=== PATIENT | female | born 1940 | race Caucasian/White ===

== ENCOUNTER 2021-04-02 05:04 | Outpatient (CLI) | payer OTHER, SELFPAY ==
[2021-04-02] MEDS: Albuterol HFA 18 GM 200 PUFF INH IH (14:29)
[2021-04-02] MEDS: Inhaler, Assist Device 1 EACH MC (14:30)
--- NOTE | 2021-04-02 15:39 | W.PFT ---
Date of service: 04/02/21 Time of Service: 13:00 Pulmonary Function Test Result Indications: Chronic Respiratory Failure 6 Minute Walk Test Distance: 600 feet SpO2 rest: 94% on 2L/min SpO2 exertion: At 2 minutes, desaturated to 88%, O2 increased to 3L/min. At 4.5 minutes desaturated to 87%, O2 increased to 4L/min with resolution of desaturations. Recommendations: 2 L/min supplemental oxygen at rest. 4 L/min supplemental oxygen with exertion.
--- NOTE | 2021-04-02 15:45 | W.PFT ---
Date of service: 04/02/21 Time of Service: 13:32 Pulmonary Function Test Result Requesting Provider Ama Indications: Worsening VELÁZQUEZ Interpretation Spirometry: There is moderate airflow obstruction. There is not a significant bronchodilator effect. Lung Volumes: Lung volumes are normal Diffusion Capacity: The diffusion is reduced Airway Pressure: Airways resistance is elevated Impression Moderate airflow obstruction. Note: When compared to 04/16/2020 the FVC and the FEV1 have both increased. When compared to 01/25/2020 there is no longer hyperinflation or air trapping present. Clinical Correlation therefore is recommended.
[2021-04-04 20:42] LABS: Cat Epithelium IgE <0.35 kU/L; Cedar, IgE <0.35 kU/L; Cockroach IgE <0.35 kU/L; Cow IgE <0.35 kU/L; Dog Dander IgE <0.35 kU/L; Douglas Fir, IgE <0.35 kU/L; Elm IgE <0.35 kU/L; Giant Ragweed IgE <0.35 kU/L; Horse Dander, IgE <0.35 kU/L; House Dust Panel <0.35 kU/L; Oak IgE <0.35 kU/L; Orchard Grass, IgE <0.35 kU/L; Short Ragweed IgE <0.35 kU/L; Silver Birch IgE <0.35 kU/L; Timothy Grass IgE <0.35 kU/L; Walnut Tree IgE <0.35 kU/L; White Pine, IgE <0.35 kU/L
[2021-04-10 17:38] LABS: CLASS 0; Cedar Red IgE <0.10 kU/L (<0.35)
== END 2021-04-02 05:05 | disposition home or self-care (01) ==
LOC: RT 05:05
PROVIDERS: PCP Family Medicine; Visit Provider Student in an Organized Health Care Education/Training Program
DX: J44.9 Chronic obstructive pulmonary disease, unspecified (principal); J45.909 Unspecified asthma, uncomplicated
CPT/HCPCS: 86003; 94060; 94618; 94726; 94729

== ENCOUNTER 2021-06-19 14:46 | Inpatient (IN) | payer MEDICARE, SELFPAY ==
[2021-06-19] VITALS (7 sets, daily range): BP systolic 92–120; BP diastolic 59–64; PULSE 67–76; RESP 4–22; TEMP 35.5–36.6; O2SAT 96–100
[2021-06-19 15:26] LABS: Source Nasal/Nares
[2021-06-19 16:13] LABS: COVID-19 PCR Negative (Negative); Influenza A PCR Negative (Negative); Influenza B PCR Negative (Negative); RSV PCR Negative (Negative)
[2021-06-19 16:29] LABS: Abs Immature Grans 0.04 10^3/uL (0.0-0.06); Absolute Basophil Count 0.03 10^3/uL (0.0-0.2); Absolute Eosinophil Count 0.07 10^3/uL (0.0-0.7); Absolute Lymphocyte Count 1.52 10^3/uL (1.2-3.4); Absolute Monocyte Count 0.79 10^3/uL (0.1-0.8); Basophils % 0.3; Eosinophils % 0.6; HCT 38.4 % (36.0-46.0); HGB 11.5 g/dL (11.2-15.7); Immature Grans % 0.4; Lymphocytes % 13.5; MCH 25.3 pg (27.0-33.0); MCHC 29.9 % (32.0-36.0); MCV 84.6 fL (80-95); MPV 9.9 fL (8.0-11.0); Neutrophils % 78.2; Nucleated RBC 0 %; Platelet Count 262 10^3/uL (130-400); RBC 4.54 10^6/uL (3.93-5.22); RDW 17.8 % (11.7-14.6); RDW-SD 54.8 fL; WBC 11.28 10^3/uL (4.4-10.8)
[2021-06-19 16:33] LABS: Absolute Neutrophil Count 8.82 10^3/uL (1.2-6.7)
[2021-06-19 16:44] LABS: ALT 17 U/L (14-59); AST 12 U/L (15-37); Albumin 3.1 g/dL (3.4-5.0); Alkaline Phosphatase 52 U/L (46-116); Anion Gap 4.7 mmol/L (3-11); BUN 23 mg/dL (7-18); Bilirubin, Total 0.4 mg/dL (0.2-1.0); CO2 31.3 mmol/L (21.0-32.0); CREATININE 1.1 mg/dL (0.55-1.02); Calcium 8.5 mg/dL (8.5-10.1); Chloride 108 mmol/L (98-107); Estimated GFR 47.79 (mL/min/1.73m2); Glucose 121 mg/dL (74-106); NT-proBNP 4369 pg/mL (<300); Potassium 4.5 mmol/L (3.5-5.1); Sodium 144 mmol/L (136-145); TSH (W/Ref FT4) 0.61 uIU/mL (0.36-3.74); Total Protein 6.1 g/dL (6.4-8.2)
[2021-06-19 16:50] LABS: Troponin I 0.07 ng/mL (<0.06)
[2021-06-19] MEDS: Furosemide 40 MG/4 ML VIAL IVP (17:09)
[2021-06-19] MEDS: Enoxaparin 40 MG/0.4 ML SYR SC (17:09)
--- NOTE | 2021-06-19 17:55 | DI.RAD_ITS ---
Exam(s) XR CHEST 2V PA LATERAL EXAM: XR CHEST 2V PA LATERAL CLINICAL HISTORY: Shortness of air, CHF, COPD TECHNIQUE: 2D digital imaging was performed. COMPARISON: CR XR CHEST 2VW (D) from 02/21/2021 FINDINGS: HEART: AVR. Enlarged, stable. Mildly tortuous aorta. PULMONARY VASCULATURE: Prominent. LUNGS: Interstitial changes, likely chronic. PLEURAL SPACE: No pleural effusion or pneumothorax. BONE:Unremarkable for age. IMPRESSION: Increased interstitial changes, likely chronic. mild pulmonary edema possible. DATA REPOSITORY: RADIATION DOSE DELIVERED:
--- NOTE | 2021-06-19 18:33 | DI.VRAD_ITS ---
PROCEDURE INFORMATION: Exam: XR Chest Exam date and time: 06/19/2021 5:52 PM Age: 80 years old Clinical indication: Shortness of breath TECHNIQUE: Imaging protocol: XR of the chest. Views: 2 views. COMPARISON: CR XR CHEST 2VW (D) 02/21/2021 2:56 PM FINDINGS: Lungs: Atelectasis in the lower lungs. Pleural spaces: Unremarkable. No pleural effusion. No pneumothorax. Heart/Mediastinum: See Vasculature finding. Vasculature: Aortic calcifications. AVR. Bones/joints: Degenerative arthritis shoulders and spine. IMPRESSION: No acute findings Dictated and Authenticated by: Bailey Perry MD. Ordering:MIGUEL ANGEL Velasquez MD
[2021-06-19] MEDS: Metoprolol 25 MG TAB PO (20:00)
--- NOTE | 2021-06-19 20:24 | W.PM.HP.N ---
Date of service: 06/19/21 Time of Service: 16:24 Assessment and Plan Assessment and plan (1) Pulmonary hypertension: Status: Acute Assessment and plan: Echocardiogram on 06/12 showed stable pulmonary hypertension. (2) Asthma-COPD overlap syndrome: Status: Acute Assessment and plan: She is on Breztri, Duonebs BID, chronic azithromycin 2x/week, prednisone 5mg daily, flutter valve. Will continue these. Pulmonary medicine consulted and was seen in their office today. CXR w/o acute findings. (3) Type 2 diabetes mellitus: Status: Acute Assessment and plan: No A1c in our records. Cont basal/bolus insulin and monitor Consistent carb diet. (4) Hyperlipidemia: Status: Acute Assessment and plan: Cont ezetimibe and simvastatin (on the combo pill at home). (5) Coronary arteriosclerosis: Status: Acute Assessment and plan: No c/o Chest pain. Cont ASA, BB, isosorbide. Troponin 0.07; trend. (6) S/P TAVR (transcatheter aortic valve replacement): (7) Heart failure with preserved ejection fraction: Status: Acute Assessment and plan: Echocardiogram on 06/12/21. EF of 65-70% Normal RV size. Moderate MR. + diastolic dysfunction. She endorses closely following a low Na diet. No excessive fluid intake. Lasix 40mg now and repeat in AM. Make decision then on further diuretic dosing. History of Present Illness History of Present Illness Chief Complaint: Dyspnea Narrative: This is an 80 yo female with a PMH of asthma,COPD overlap syndrome, chronic hypoxic resp failure,OA, fibromyalgia, former smoker, AAA, cerebral arterial aneurysm w/o rupture. She presented to Dr Serrato's office / Pulmonary Medicine, for worsening dyspnea over appx 3 days. Increased sputum production. She has noted pedal edema. She has lasix to take prn for wt gain / fluid retention but has been hesitant to take it because she then has to urinate in the night. No CP/palpitations, Fever/chills, dysuria, nausea/vomiting/diarrhea. She appeared to have volume overload and not having a COPD exacerbation. She was admitted for further evaluation and treatment. Review of Systems All systems reviewed & are unremarkable except as noted in HPI and below [facility] Active Problem List Pulmonary hypertension (Acute) Asthma-COPD overlap syndrome (Acute) Thyroid nodule (Acute) Type 2 diabetes mellitus (Acute) Hyperlipidemia (Acute) Coronary arteriosclerosis (Acute) Cerebral arterial aneurysm (Acute) Abdominal aortic aneurysm (Acute) COPD (chronic obstructive pulmonary disease) (Chronic) GERD (gastroesophageal reflux disease) (Chronic) HLP (hyperkeratosis lenticularis perstans) (Acute) Arthritis (Acute) Fibromyalgia (Acute) Osteoporosis (Chronic) Dysphagia (Acute) Renal insufficiency (Chronic) Respiratory failure with hypoxia (Acute) Former smoker (Chronic) Pleural effusion (Acute) Recurrent respiratory infection (Acute) COPD, frequent exacerbations (Acute) Malaise and fatigue (Acute) Persistent insomnia (Acute) Medical History Aortic valve stenosis, nonrheumatic Chronic pancreatitis Fracture of humerus right Surgical History H/O abdominal aortic aneurysm repair H/O cardiac catheterization History of colectomy S/P appendectomy S/P TAVR (transcatheter aortic valve replacement) Stented coronary artery 2 cardiac stents. Family History Brother , at age 60 COPD (chronic obstructive pulmonary disease) Cancer family history of lung cancer. Hyperlipidemia Father COPD (chronic obstructive pulmonary disease) at age 59 Hyperlipidemia Heart disease Diabetes Myocardial infarction Sister Cancer family history of ovarian cancer. Mother Hyperlipidemia Alzheimer disease Social History Smoking/Tobacco Use Status: Former Tobacco Use tobacco type: cigarettes Quit Date: 02/25/20 Pack-years: 195 Tobacco: How many years used: 65 Second Hand Exposure: No Smoking risk assessment performed?: Yes Alcohol Intake: current Alcohol Intake frequency: a few times a week Alcohol type: hard liquor Drug use: Never Substance use type: does not use Current gender identity: female Do you feel safe at home: Yes Do you feel safe in your relationship?: Yes Meds Allergies and Home Medications Allergies Allergy/AdvReac Type Severity Reaction Status Date / Time vancomycin Allergy Unknown Other (See Verified 06/19/21 13:18 Comment) zolpidem [From Ambien] AdvReac Severe hallucinati Verified 06/19/21 13:18 ons Home Medications Medication Instructions Recorded Confirmed Type aspirin 81 mg tablet,delayed 81 mg PO DAILY 01/31/21 06/19/21 History release blood sugar diagnostic #10 ea 01/31/21 06/19/21 History blood-glucose meter #1 ea 01/31/21 06/19/21 History ezetimibe 10 mg-simvastatin 20 mg 1 tab PO QHS 01/31/21 06/19/21 History tablet gabapentin 600 mg tablet 600 mg PO QHS 01/31/21 06/19/21 History insulin glargine 100 unit/mL (3 40 unit SUBCUT DAILY ml 01/31/21 06/19/21 History mL) subcutaneous pen insulin lispro 100 unit/mL See Rx Instructions SUBCUT .COMPLEX 01/31/21 05/13/21 History subcutaneous pen ipratropium 0.5 mg-albuterol 3 mg 3 ml INHALATION Q6H PRN 01/31/21 06/19/21 History (2.5 mg base)/3 mL nebulization soln isosorbide mononitrate 30 mg 30 mg PO DAILY 01/31/21 06/19/21 History tablet,extended release 24 hr pantoprazole 40 mg tablet,delayed 40 mg PO DAILY 01/31/21 06/19/21 History release spironolactone 25 mg tablet 12.5 mg PO DAILY tab 02/06/21 06/19/21 History azithromycin 500 mg tablet See Rx Instructions PO .COMPLEX 02/20/21 06/19/21 Rx #36 tab NS albuterol sulfate 90 mcg/actuation 2 puff INHALATION .COMPLEX PRN #1 02/26/21 05/13/21 Rx aerosol inhaler inh budesonide 160 mcg-glycopyr 9 2 inh INHALATION BID #10.7 g 03/04/21 06/19/21 Rx mcg-formot 4.8 mcg/actuation HFA inhaler Oxygen #1 ea 04/05/21 06/19/21 Rx codeine 10 mg-guaifenesin 100 mg/5 10 ml PO BID PRN ml 04/25/21 06/19/21 History mL oral liquid prednisone 5 mg tablet 5 mg PO DAILY #90 tab 05/13/21 06/19/21 Rx metoprolol tartrate 25 mg tablet 75 mg PO BID 06/19/21 06/19/21 History Exam Const General: cooperative and no acute distress Nutritional Appearance: obese Orientation: alert and oriented x3 HENMT Head: normal to inspection and atraumatic Mouth: moist mucous membranes Eyes General: appearance normal, both eyes and all related structures Sclera: sclerae normal Neck Neck: full ROM and no JVD Resp Effort & Inspection: normal respiratory effort Auscultation: rales (lower lung vyas), no rhonchi and no wheezes Cardio Rate: regular rate Rhythm: regular rhythm Heart Sounds: S1 normal and S2 normal GI Palpation: soft and nontender Auscultation: normal bowel sounds Skin General skin exam: no rashes or lesions noted Neuro General: no focal motor deficits Cranial Nerves: facial strength normal Cognition: normal cognition Speech: speech normal Extrem General: no calf tenderness and edema Laterality: bilateral Psych Appearance: grossly normal Affect: normal affect Results Labs Result diagrams: 06/20/21 06:10 06/19/21 16:15 Labs: Laboratory Results - last 24 hr 06/19/21 06/19/21 06/19/21 15:10 16:15 16:15 WBC 11.28 H RBC 4.54 Hgb 11.5 Hct 38.4 MCV 84.6 MCH 25.3 L MCHC 29.9 L RDW 17.8 H Plt Count 262 MPV 9.9 Immature Gran % 0.4 Neutrophils % 78.2 Lymphocytes % 13.5 Monocytes % 7.0 Eosinophils % 0.6 Basophils % 0.3 Nucleated RBC % 0 Absolute Neutrophils 8.82 H Absolute Lymphocytes 1.52 Absolute Monocytes 0.79 Absolute Eosinophils 0.07 Absolute Basophils 0.03 Sodium 144 Potassium 4.5 Chloride 108 H Carbon Dioxide 31.3 Anion Gap 4.7 BUN 23 H Creatinine 1.1 H Estimated GFR/1.73 m2 47.79 Glucose 121 H Calcium 8.5 Magnesium 2.0 Total Bilirubin 0.4 AST 12 L ALT 17 Alkaline Phosphatase 52 Troponin I 0.07 H NT-Pro-B Natriuret Pep 4369 H Total Protein 6.1 L Albumin 3.1 L TSH 0.61 COVID-19 Source Nasal/Nares SARS-CoV-2 (PCR) Negative Influenza Type A (PCR) Negative Influenza Type B (PCR) Negative RSV (PCR) Negative Last Vital Signs Temp 35.5 C L 06/19/21 20:05 Pulse 73 06/19/21 20:05 Resp 22 06/19/21 20:05 BP 120/61 06/19/21 20:05 Pulse Ox 100 06/19/21 20:05
[2021-06-19 20:25] LABS: Troponin I 0.09 ng/mL (<0.06)
[2021-06-19] MEDS: Albuterol 2.5 MG/3 ML INH SOLN VIAL UPD (21:06)
[2021-06-19] MEDS: Gabapentin 600 MG TAB PO (21:36)
[2021-06-19] MEDS: Simvastatin 20 MG TAB PO (21:36)
[2021-06-19] MEDS: Ezetimibe 10 MG TAB PO (21:36)
[2021-06-19] MEDS: traZODone 50 MG TAB PO (23:05)
[2021-06-20] VITALS (8 sets, daily range): BP systolic 98–107; BP diastolic 60–67; PULSE 60–79; RESP 18; TEMP 36.3–37.3; O2SAT 91–100
[2021-06-20 00:41] LABS: Troponin I 0.09 ng/mL (<0.06)
[2021-06-20] MEDS: Pantoprazole 40 MG TABCR PO (07:22)
[2021-06-20] MEDS: Albuterol 2.5 MG/3 ML INH SOLN VIAL UPD (07:22)
[2021-06-20 07:29] LABS: Abs Immature Grans 0.03 10^3/uL (0.0-0.06); Absolute Basophil Count 0.04 10^3/uL (0.0-0.2); Absolute Eosinophil Count 0.19 10^3/uL (0.0-0.7); Absolute Lymphocyte Count 2.69 10^3/uL (1.2-3.4); Absolute Monocyte Count 0.87 10^3/uL (0.1-0.8); Absolute Neutrophil Count 6.72 10^3/uL (1.2-6.7); Basophils % 0.4; Eosinophils % 1.8; HCT 42.3 % (36.0-46.0); HGB 12.6 g/dL (11.2-15.7); Immature Grans % 0.3; Lymphocytes % 25.5; MCH 24.8 pg (27.0-33.0); MCHC 29.8 % (32.0-36.0); MCV 83.1 fL (80-95); MPV 10.5 fL (8.0-11.0); Monocytes % 8.3; Neutrophils % 63.7; Nucleated RBC 0 %; Platelet Count 239 10^3/uL (130-400); RBC 5.09 10^6/uL (3.93-5.22); RDW 17.7 % (11.7-14.6); RDW-SD 53.7 fL; WBC 10.54 10^3/uL (4.4-10.8)
[2021-06-20] MEDS: Aspirin E.C. 81 MG TABEC PO (07:43)
[2021-06-20] MEDS: Spironolactone 25 MG TAB 12.5 MG PO (07:43)
[2021-06-20] MEDS: predniSONE 5 MG TAB PO (07:44)
[2021-06-20] MEDS: Isosorbide Mononitrate 30 MG TABCR PO (07:44)
[2021-06-20] MEDS: Furosemide 40 MG/4 ML VIAL IVP ×2 (07:44→15:07)
[2021-06-20 07:59] LABS: Anion Gap 6.4 mmol/L (3-11); BUN 25 mg/dL (7-18); CO2 31.6 mmol/L (21.0-32.0); CREATININE 1.2 mg/dL (0.55-1.02); Calcium 8.8 mg/dL (8.5-10.1); Calculated LDL 30 mg/dL (<100); Chloride 107 mmol/L (98-107); Cholesterol 95 mg/dL (<200); Estimated GFR 43.23 (mL/min/1.73m2); Glucose 92 mg/dL (74-106); HDL Cholesterol 44 mg/dL (40-60); Magnesium 1.9 mg/dL (1.8-2.4); Potassium 3.9 mmol/L (3.5-5.1); Sodium 145 mmol/L (136-145); Triglyceride 106 mg/dL (<150); Troponin I 0.05 ng/mL (<0.06)
[2021-06-20] MEDS: Insulin Glargine 300 UNITS/3 ML PEN 40 UNITS SC (08:08)
--- NOTE | 2021-06-20 08:43 | W.PM.PROGNOT ---
Date of Service Date of service: 06/20/21 Time of Service: 08:44 Assessment and Plan Assessment and plan (1) Pulmonary hypertension: Status: Acute Assessment and plan: Echocardiogram on 06/12 showed stable pulmonary hypertension. (2) Asthma-COPD overlap syndrome: Status: Acute Assessment and plan: She is on Breztri, Duonebs BID, chronic azithromycin 2x/week, prednisone 5mg daily, flutter valve. Will continue these. Pulmonary medicine consulted and was seen in their office today. CXR w/o acute findings. WBC count was 11.28 on admission; now normal. (3) Type 2 diabetes mellitus: Status: Acute Assessment and plan: No A1c in our records. Glucose this AM of 97. Cont basal/bolus insulin and monitor Consistent carb diet. (4) Hyperlipidemia: Status: Acute Assessment and plan: Cont ezetimibe and simvastatin (on the combo pill at home). (5) Coronary arteriosclerosis: Status: Acute Assessment and plan: No c/o Chest pain. Cont ASA, BB, isosorbide. Troponin 0.07 > 0.09 > 0.09 > 0.05. Secondary to demand ischemia from acute diastolic CHF. (6) S/P TAVR (transcatheter aortic valve replacement): (7) Heart failure with preserved ejection fraction: Status: Acute Assessment and plan: Echocardiogram on 06/12/21. EF of 65-70% Normal RV size. Moderate MR. + diastolic dysfunction. She endorses closely following a low Na diet. No excessive fluid intake. Lasix 40mg on admission and repeated this AM. Pedal edema has improved. (Creatinine stable: 1.1 > 1.2; monitor). Lasix 40mg at 1600 and then re-assess for AM dosing tomorrow. Subjective Subjective Patient reports: no new complaints, feels better, tolerating liquids well, vomiting (chronic difficulty with food lodging in esophagus, then regurgitates.) and shortness of breath (Baseline.); denies nausea Exam Const General: cooperative and no acute distress Nutritional Appearance: obese Orientation: alert and oriented x3 HENMT Head: normal to inspection and atraumatic Mouth: moist mucous membranes Eyes General: appearance normal, both eyes and all related structures Sclera: sclerae normal Neck Neck: full ROM and no JVD Resp Effort & Inspection: normal respiratory effort Auscultation: rales (lower lung vyas), no rhonchi and wheezes lower bilaterally Cardio Rate: regular rate Rhythm: regular rhythm Heart Sounds: S1 normal and S2 normal GI Palpation: soft and nontender Auscultation: normal bowel sounds Skin General skin exam: no rashes or lesions noted Neuro General: no focal motor deficits Cranial Nerves: facial strength normal Cognition: normal cognition Speech: speech normal Extrem General: no calf tenderness and edema Laterality: bilateral (Improved; skin not taut.) Psych Appearance: grossly normal Affect: normal affect Objective Last Vital Signs Temp 36.8 C 06/20/21 07:23 Pulse 63 06/20/21 07:23 Resp 18 06/20/21 07:23 BP 98/60 L 06/20/21 07:23 Pulse Ox 100 06/20/21 07:23 Laboratory Results - last 24 hr 06/19/21 06/19/21 06/19/21 15:10 16:15 16:15 WBC 11.28 H RBC 4.54 Hgb 11.5 Hct 38.4 MCV 84.6 MCH 25.3 L MCHC 29.9 L RDW 17.8 H Plt Count 262 MPV 9.9 Immature Gran % 0.4 Neutrophils % 78.2 Lymphocytes % 13.5 Monocytes % 7.0 Eosinophils % 0.6 Basophils % 0.3 Nucleated RBC % 0 Absolute Neutrophils 8.82 H Absolute Lymphocytes 1.52 Absolute Monocytes 0.79 Absolute Eosinophils 0.07 Absolute Basophils 0.03 Sodium 144 Potassium 4.5 Chloride 108 H Carbon Dioxide 31.3 Anion Gap 4.7 BUN 23 H Creatinine 1.1 H Estimated GFR/1.73 m2 47.79 Glucose 121 H Calcium 8.5 Magnesium 2.0 Total Bilirubin 0.4 AST 12 L ALT 17 Alkaline Phosphatase 52 Troponin I 0.07 H NT-Pro-B Natriuret Pep 4369 H Total Protein 6.1 L Albumin 3.1 L Triglycerides Total Cholesterol LDL Cholesterol, Calc HDL Cholesterol TSH 0.61 COVID-19 Source Nasal/Nares SARS-CoV-2 (PCR) Negative Influenza Type A (PCR) Negative Influenza Type B (PCR) Negative RSV (PCR) Negative 06/19/21 06/20/21 06/20/21 19:35 00:10 06:10 WBC RBC Hgb Hct MCV MCH MCHC RDW Plt Count MPV Immature Gran % Neutrophils % Lymphocytes % Monocytes % Eosinophils % Basophils % Nucleated RBC % Absolute Neutrophils Absolute Lymphocytes Absolute Monocytes Absolute Eosinophils Absolute Basophils Sodium 145 Potassium 3.9 Chloride 107 Carbon Dioxide 31.6 Anion Gap 6.4 BUN 25 H Creatinine 1.2 H Estimated GFR/1.73 m2 43.23 Glucose 92 Calcium 8.8 Magnesium 1.9 Total Bilirubin AST ALT Alkaline Phosphatase Troponin I 0.09 H* 0.09 H* 0.05 NT-Pro-B Natriuret Pep Total Protein Albumin Triglycerides 106 Total Cholesterol 95 LDL Cholesterol, Calc 30 HDL Cholesterol 44 TSH COVID-19 Source SARS-CoV-2 (PCR) Influenza Type A (PCR) Influenza Type B (PCR) RSV (PCR) 06/20/21 06:10 WBC 10.54 RBC 5.09 Hgb 12.6 Hct 42.3 MCV 83.1 MCH 24.8 L MCHC 29.8 L RDW 17.7 H Plt Count 239 MPV 10.5 Immature Gran % 0.3 Neutrophils % 63.7 Lymphocytes % 25.5 Monocytes % 8.3 Eosinophils % 1.8 Basophils % 0.4 Nucleated RBC % 0 Absolute Neutrophils 6.72 H Absolute Lymphocytes 2.69 Absolute Monocytes 0.87 H Absolute Eosinophils 0.19 Absolute Basophils 0.04 Sodium Potassium Chloride Carbon Dioxide Anion Gap BUN Creatinine Estimated GFR/1.73 m2 Glucose Calcium Magnesium Total Bilirubin AST ALT Alkaline Phosphatase Troponin I NT-Pro-B Natriuret Pep Total Protein Albumin Triglycerides Total Cholesterol LDL Cholesterol, Calc HDL Cholesterol TSH COVID-19 Source SARS-CoV-2 (PCR) Influenza Type A (PCR) Influenza Type B (PCR) RSV (PCR)
--- NOTE | 2021-06-20 11:10 | W.PM.PROGNOT ---
Date of Service Date of service: 06/20/21 Time of Service: 11:10 Assessment and Plan Assessment and plan (1) Pulmonary hypertension: Status: Acute Assessment and plan: Echocardiogram on 06/12 showed stable pulmonary hypertension. (2) Asthma-COPD overlap syndrome: Status: Acute Assessment and plan: She is on Breztri, Duonebs BID, chronic azithromycin 2x/week, prednisone 5mg daily, flutter valve. Will continue these. Pulmonary medicine consulted and was seen in their office today. CXR w/o acute findings. WBC count was 11.28 on admission; now normal. (3) Type 2 diabetes mellitus: Status: Acute Assessment and plan: No A1c in our records. Glucose this AM of 97. Cont basal/bolus insulin and monitor Consistent carb diet. (4) Hyperlipidemia: Status: Acute Assessment and plan: Cont ezetimibe and simvastatin (on the combo pill at home). (5) Coronary arteriosclerosis: Status: Acute Assessment and plan: No c/o Chest pain. Cont ASA, BB, isosorbide. Troponin 0.07 > 0.09 > 0.09 > 0.05. Secondary to demand ischemia from acute diastolic CHF. (6) S/P TAVR (transcatheter aortic valve replacement): (7) Heart failure with preserved ejection fraction: Status: Acute Assessment and plan: Echocardiogram on 06/12/21. EF of 65-70% Normal RV size. Moderate MR. + diastolic dysfunction. She endorses closely following a low Na diet. No excessive fluid intake. Lasix 40mg on admission and repeated this AM. Pedal edema has improved. (Creatinine stable: 1.1 > 1.2; monitor). Lasix 40mg at 1600 and then re-assess for AM dosing tomorrow. Subjective Subjective Patient reports: feels better, shortness of breath (None at rest this AM. ) and afebrile; denies nausea Interval history since last seen: Regurgitated mucous while eating breakfast. Has chronic difficulty with slow transient time of food bolus in esophagus causing discomfort and mucous. Exam Const General: cooperative and no acute distress Nutritional Appearance: obese Orientation: alert and oriented x3 HENMT Head: normal to inspection and atraumatic Mouth: moist mucous membranes Eyes General: appearance normal, both eyes and all related structures Sclera: sclerae normal Neck Neck: full ROM and no JVD Resp Effort & Inspection: normal respiratory effort Auscultation: rales (lower lung vyas;improved. ), no rhonchi and wheezes scattered wheezes Cardio Rate: regular rate Rhythm: regular rhythm Heart Sounds: S1 normal and S2 normal GI Palpation: soft and nontender Auscultation: normal bowel sounds Skin General skin exam: no rashes or lesions noted Neuro General: no focal motor deficits Cranial Nerves: facial strength normal Cognition: normal cognition Speech: speech normal Extrem General: no calf tenderness and edema Laterality: bilateral (Improved; skin not taut.) Psych Appearance: grossly normal Affect: normal affect Objective Last Vital Signs Temp 36.8 C 06/20/21 07:23 Pulse 63 06/20/21 07:23 Resp 18 06/20/21 07:23 BP 98/60 L 06/20/21 07:23 Pulse Ox 100 06/20/21 07:23 Laboratory Results - last 24 hr 06/19/21 06/19/21 06/19/21 15:10 16:15 16:15 WBC 11.28 H RBC 4.54 Hgb 11.5 Hct 38.4 MCV 84.6 MCH 25.3 L MCHC 29.9 L RDW 17.8 H Plt Count 262 MPV 9.9 Immature Gran % 0.4 Neutrophils % 78.2 Lymphocytes % 13.5 Monocytes % 7.0 Eosinophils % 0.6 Basophils % 0.3 Nucleated RBC % 0 Absolute Neutrophils 8.82 H Absolute Lymphocytes 1.52 Absolute Monocytes 0.79 Absolute Eosinophils 0.07 Absolute Basophils 0.03 Sodium 144 Potassium 4.5 Chloride 108 H Carbon Dioxide 31.3 Anion Gap 4.7 BUN 23 H Creatinine 1.1 H Estimated GFR/1.73 m2 47.79 Glucose 121 H Calcium 8.5 Magnesium 2.0 Total Bilirubin 0.4 AST 12 L ALT 17 Alkaline Phosphatase 52 Troponin I 0.07 H NT-Pro-B Natriuret Pep 4369 H Total Protein 6.1 L Albumin 3.1 L Triglycerides Total Cholesterol LDL Cholesterol, Calc HDL Cholesterol TSH 0.61 COVID-19 Source Nasal/Nares SARS-CoV-2 (PCR) Negative Influenza Type A (PCR) Negative Influenza Type B (PCR) Negative RSV (PCR) Negative 06/19/21 06/20/21 06/20/21 19:35 00:10 06:10 WBC RBC Hgb Hct MCV MCH MCHC RDW Plt Count MPV Immature Gran % Neutrophils % Lymphocytes % Monocytes % Eosinophils % Basophils % Nucleated RBC % Absolute Neutrophils Absolute Lymphocytes Absolute Monocytes Absolute Eosinophils Absolute Basophils Sodium 145 Potassium 3.9 Chloride 107 Carbon Dioxide 31.6 Anion Gap 6.4 BUN 25 H Creatinine 1.2 H Estimated GFR/1.73 m2 43.23 Glucose 92 Calcium 8.8 Magnesium 1.9 Total Bilirubin AST ALT Alkaline Phosphatase Troponin I 0.09 H* 0.09 H* 0.05 NT-Pro-B Natriuret Pep Total Protein Albumin Triglycerides 106 Total Cholesterol 95 LDL Cholesterol, Calc 30 HDL Cholesterol 44 TSH COVID-19 Source SARS-CoV-2 (PCR) Influenza Type A (PCR) Influenza Type B (PCR) RSV (PCR) 06/20/21 06:10 WBC 10.54 RBC 5.09 Hgb 12.6 Hct 42.3 MCV 83.1 MCH 24.8 L MCHC 29.8 L RDW 17.7 H Plt Count 239 MPV 10.5 Immature Gran % 0.3 Neutrophils % 63.7 Lymphocytes % 25.5 Monocytes % 8.3 Eosinophils % 1.8 Basophils % 0.4 Nucleated RBC % 0 Absolute Neutrophils 6.72 H Absolute Lymphocytes 2.69 Absolute Monocytes 0.87 H Absolute Eosinophils 0.19 Absolute Basophils 0.04 Sodium Potassium Chloride Carbon Dioxide Anion Gap BUN Creatinine Estimated GFR/1.73 m2 Glucose Calcium Magnesium Total Bilirubin AST ALT Alkaline Phosphatase Troponin I NT-Pro-B Natriuret Pep Total Protein Albumin Triglycerides Total Cholesterol LDL Cholesterol, Calc HDL Cholesterol TSH COVID-19 Source SARS-CoV-2 (PCR) Influenza Type A (PCR) Influenza Type B (PCR) RSV (PCR)
[2021-06-20] MEDS: Albuterol/Ipratropium 3 ML UPD VIAL IH ×2 (11:31→17:49)
[2021-06-20] MEDS: Enoxaparin 40 MG/0.4 ML SYR SC (15:08)
[2021-06-20] MEDS: Normal Saline Flush 10 ML SYR IVP ×2 (15:08→20:28)
[2021-06-20] MEDS: Insulin Aspart 300 UNITS/3 ML PEN SC ×2 (17:54→21:53)
[2021-06-20] MEDS: Nystatin POWDER 60 GM JAR TP (20:28)
[2021-06-20] MEDS: Simvastatin 20 MG TAB PO (21:53)
[2021-06-20] MEDS: Ezetimibe 10 MG TAB PO (21:53)
[2021-06-20] MEDS: Gabapentin 600 MG TAB PO (21:54)
[2021-06-20] MEDS: traZODone 50 MG TAB PO (21:54)
[2021-06-21 03:05] VITALS: BP 100/56; PULSE 90; RESP 18; TEMP 36.5; O2SAT 91
[2021-06-21] MEDS: Albuterol 2.5 MG/3 ML INH SOLN VIAL UPD (03:12)
[2021-06-21] MEDS: Acetaminophen 325 MG TAB PO (03:19)
[2021-06-21 03:30] VITALS: O2SAT 95
[2021-06-21 07:08] VITALS: PULSE 75
[2021-06-21 07:17] LABS: Anion Gap 7.8 mmol/L (3-11); BUN 37 mg/dL (7-18); CO2 30.2 mmol/L (21.0-32.0); CREATININE 1.7 mg/dL (0.55-1.02); Calcium 8.9 mg/dL (8.5-10.1); Chloride 104 mmol/L (98-107); Estimated GFR 28.92 (mL/min/1.73m2); Glucose 108 mg/dL (74-106); Sodium 142 mmol/L (136-145)
[2021-06-21 07:23] VITALS: BP 95/65; PULSE 78; RESP 18; TEMP 36.5; O2SAT 95
[2021-06-21] MEDS: Normal Saline Flush 10 ML SYR IVP (07:58)
[2021-06-21] MEDS: Furosemide 40 MG/4 ML VIAL IVP (07:58)
--- NOTE | 2021-06-21 07:58 | PDOC.CMIN ---
- If Service Date Differs Date of service: 06/21/21 Time of Service: 07:58 Care Management Initial Assess REASON FOR HOSPITALIZATION:: Pulmonary Hypertension, HF PAST MEDICAL HISTORY/PAST SURGICAL HISTORY:: PFSH. Active Problem List . Pulmonary hypertension (Acute). Asthma-COPD overlap syndrome (Acute). Thyroid nodule (Acute). Type 2 diabetes mellitus (Acute). Hyperlipidemia (Acute). Coronary arteriosclerosis (Acute). Cerebral arterial aneurysm (Acute). Abdominal aortic aneurysm (Acute). COPD (chronic obstructive pulmonary disease) (Chronic). GERD (gastroesophageal reflux disease) (Chronic). HLP (hyperkeratosis lenticularis perstans) (Acute). Arthritis (Acute). Fibromyalgia (Acute). Osteoporosis (Chronic). Dysphagia (Acute). Renal insufficiency (Chronic). Respiratory failure with hypoxia (Acute). Former smoker (Chronic). Pleural effusion (Acute). Recurrent respiratory infection (Acute). COPD, frequent exacerbations (Acute). Malaise and fatigue (Acute). Persistent insomnia (Acute). Medical History . Aortic valve stenosis, nonrheumatic. Chronic pancreatitis. Fracture of humerus. right. Surgical History . H/O abdominal aortic aneurysm repair. H/O cardiac catheterization. History of colectomy. S/P appendectomy. S/P TAVR (transcatheter aortic valve replacement). Stented coronary artery. 2 cardiac stents PREVIOUS FUNCTIONAL STATUS/SOCIAL/FAMILY SUPPORTS:: Brionna lives in [place], [place] with her Adrián. CURRENT FUNCTIONAL STATUS:: Brionna was discharged before was able to meet with her. Information obtained from chart review and staff discussion/documentation. ADVANCE DIRECTIVES:: none on file Has patient been provided with info about the portal/API?: Yes Did the patient sign up for the portal?: No CODE STATUS:: Full Code INSURANCE COVERAGE / FINANCIAL ISSUES:: [facility] PRIMARY CARE PHYSICIAN:: Jasvir Maxwell POTENTIAL DISCHARGE NEEDS:: Follow up with PCP and plan of care PATIENT/FAMILY EDUCATION NEEDS:: Review of discharge instructions including medications, activity, diet, limitations, follow up plan and discuss Ask Me Three. TRANSPORTATION:: via private vehicle PLAN:: Brionna will discharge home with no new services. She will follow up with her PCP and transport with family.
[2021-06-21] MEDS: predniSONE 5 MG TAB PO (08:50)
[2021-06-21] MEDS: Spironolactone 25 MG TAB 12.5 MG PO (08:50)
[2021-06-21] MEDS: Aspirin E.C. 81 MG TABEC PO (08:50)
[2021-06-21] MEDS: Pantoprazole 40 MG TABCR PO (08:50)
[2021-06-21] MEDS: Isosorbide Mononitrate 30 MG TABCR PO (08:51)
[2021-06-21] MEDS: Insulin Glargine 300 UNITS/3 ML PEN 40 UNITS SC (08:51)
--- NOTE | 2021-06-21 09:10 | NUR.NOTE ---
Nursing Note: Manual blood pressure 82/64. Pt was sitting up on the side of the bed. Pt was laying down in bed previously this morning the first time blood pressure was taken
[2021-06-21] MEDS: Azithromycin 250 MG TAB 500 MG PO (09:48)
[2021-06-21] MEDS: Nystatin POWDER 60 GM JAR TP (09:49)
--- NOTE | 2021-06-21 10:04 | PHA.REVIEW ---
Pharmacy Admission Review - Admission Clinical Review (Last Reviewed 06/20/21 @ 08:01 by Ron Culp MD) Heart failure with preserved ejection fraction (Acute) Pulmonary hypertension (Acute) Asthma-COPD overlap syndrome (Acute) Type 2 diabetes mellitus (Acute) Hyperlipidemia (Acute) Coronary arteriosclerosis (Acute) vancomycin Allergy (Unknown, Verified 06/19/21 13:18) Other (See Comment) zolpidem [From Ambien] Adverse Reaction (Severe, Verified 06/19/21 13:18) hallucinations Resuscitation Status Full Code Height 5 ft 1.81 in Weight 72.6 kg - Renal Dosing Renal Dosing: BUN 37 mg/dL (7-18) H D 06/21/21 06:10 Creatinine 1.7 mg/dL (0.55-1.02) H 06/21/21 06:10 Medications needing adjustments: Intervened List of meds needing interventions: eCrCl 20 ml/min, adjusted lmwh dose - Anticoagulation Anticoagulation: Hgb 12.6 g/dL (11.2-15.7) 06/20/21 06:10 Hct 42.3 % (36.0-46.0) 06/20/21 06:10 Plt Count 239 10^3/uL (130-400) 06/20/21 06:10 Creatinine 1.7 mg/dL (0.55-1.02) H 06/21/21 06:10 DVT Prophylaxis: Reviewed Medications: Enoxaparin - Opiate Usage Evaluate Pain Scale/Pains Meds: Reviewed Scheduled Bowel Reg ordered if on Opiates?: Yes - Relevant Labs Sodium 142 mmol/L (136-145) 06/21/21 06:10 Potassium 4.0 mmol/L (3.5-5.1) 06/21/21 06:10 Chloride 104 mmol/L (98-107) 06/21/21 06:10 Magnesium 1.9 mg/dL (1.8-2.4) 06/20/21 06:10 Electrolytes, C-Reactive P, ESR: Reviewed - DM Control DM Control: Glucose 108 mg/dL (74-106) H 06/21/21 06:10 Finger Stick Blood Glucose 102 Finger Stick Blood Glucose 102 Finger Stick Blood Glucose 102 Finger Stick Blood Glucose 102 Insulin Dosing: Reviewed - Heart Failure/SD Heart Failure/SD: Troponin I 0.05 ng/mL (<0.06) 06/20/21 06:10 NT-Pro-B Natriuret Pep 4369 pg/mL (<300) H 06/19/21 16:15 EF%, TEODORA's, B-Blockers, Diuretics: Reviewed - BP Control BP Control: Blood Pressure 95/65 Blood Pressure 100/56 Blood Pressure 107/65 If elevated: Reviewed - Qtc Review If Elevated: N/A - IV to PO Switch IV Medications: Reviewed - Home Meds Home Med List reviewed: Reviewed Relevent Home Meds Not ordered & why?: all ordered; home dose of metoprolol is 75 BID, order currently on hold at lower dose - Current meds Current Medication Order Review: Reviewed
--- NOTE | 2021-06-21 10:05 | DSE_ITS ---
Date of service: 06/21/21 Time of Service: 10:05 DS: Diagnosis Discharge Diagnosis (1) Pulmonary hypertension: Status: Acute (2) Asthma-COPD overlap syndrome: Status: Acute (3) Type 2 diabetes mellitus: Status: Acute (4) Hyperlipidemia: Status: Acute (5) Coronary arteriosclerosis: Status: Acute (6) Heart failure with preserved ejection fraction: Status: Acute Discharge Plan Disposition Patient Disposition: HOME Condition: Improving Discharge Details Reason For Visit: Heart Failure with Preserved Ejection Fraction Admit Date/Time: 06/19/21 14:46 Admit Provider: Ron Culp Attending Provider: Ron Culp Primary Care Provider: Jasvir Maxwell Hospital Course Hospital Course: This is an 80 yo female with a PMH of asthma,COPD overlap syndrome, chronic hypoxic resp failure,OA, fibromyalgia, former smoker, AAA, cerebral arterial aneurysm w/o rupture. She presented to Dr Serrato's office / Pulmonary Medicine, for worsening dyspnea over appx 3 days. Increased sputum production. She has noted pedal edema. She has lasix to take prn for wt gain / fluid retention but has been hesitant to take it because she then has to urinate in the night. No CP/palpitations, Fever/chills, dysuria, nausea/vomiting/diarrhea. She appeared to have volume overload and not having a COPD exacerbation. She was admitted for further evaluation and treatment. Her usual pulmonary medications were continued. CXR showed increased interstitial changes, likely chronic. mild pulmonary edema possible. IV lasix initiated and her pedal edema improved significantly. She also had some dependent edema of her back that resolve with diureses. Her presenting WBC count was 11.28; this normalized w/o the addition of anti biotics. Her ASA, BB and isosorbide were continued. Her troponin was mildly elevated at 0.07. It trended to 0.09, then 0.05. At no time did she c/o chest pain. She had no findings of concern on EKG. She had a previous echocardiogram from 06/12/21 that showed and EFF of 65-70%. Normal RV size. Moderate MR. + diastolic dysfunction. Other than feeling some generalized fatigue, she felt like she was at or near her baseline respiratory hickey. She will continue lasix at home, 20mg daily. She was prescribed trazadone 50mg nightly for sleep; she had endorsed that this has helped in the past. Cont a low Na diet and a carb controlled diet. Follow up with Dr Serrato in 1-2 weeks. Home Meds and New Rx's Prescriptions: New trazodone 50 mg Tablet 50 mg PO HS Qty: 30 RF: 0 furosemide 20 mg tablet 20 mg PO DAILY Qty: 30 RF: 0 Continued Breztri Aerosphere 160-9-4.8 mcg/actuation HFA aerosol inhaler 2 inh inhalation BID Qty: 10.7 RF: 8 aspirin [Adult Low Dose Aspirin] 81 mg tablet,delayed release (DR/EC) 81 mg PO DAILY RF: 0 ezetimibe-simvastatin 10-20 mg tablet 1 tab PO QHS RF: 0 gabapentin 600 mg tablet 600 mg PO QHS RF: 0 insulin lispro [Humalog KwikPen Insulin] 100 unit/mL insulin pen See Rx Instructions subcut .COMPLEX RF: 0 ipratropium-albuterol 0.5 mg-3 mg(2.5 mg base)/3 mL solution for nebulization 3 ml inhalation Q6H PRNRF: 0 isosorbide mononitrate 30 mg tablet extended release 24 hr 30 mg PO DAILY RF: 0 Lantus Solostar U-100 Insulin 100 unit/mL (3 mL) insulin pen 40 unit subcut DAILY RF: 0 pantoprazole 40 mg tablet,delayed release (DR/EC) 40 mg PO DAILY RF: 0 spironolactone 25 mg tablet 12.5 mg PO DAILY RF: 0 metoprolol tartrate 25 mg tablet 75 mg PO BID RF: 0 prednisone 5 mg tablet 5 mg PO DAILY Qty: 90 RF: 1 azithromycin 500 mg tablet See Rx Instructions PO .COMPLEX Qty: 36 RF: 4 albuterol sulfate [ProAir HFA] 90 mcg/actuation HFA aerosol inhaler 2 puff inhalation .COMPLEX PRN (Reason: Shortness of Breath, cough, wheezing) Qty: 1 RF: 5 codeine-guaifenesin 10-100 mg/5 mL liquid 10 ml PO BID PRN (Reason: cough) RF: 0 No Action (DME) Oxygen Tank See Rx Instructions .ROUTE .MEDSUPPLY Qty: 1 RF: 0 (DME) blood-glucose meter [Accu-Chek Ethel Plus Meter] Misc See Rx Instructions .ROUTE .MEDSUPPLY Qty: 1 RF: 0 (DME) Accu-Chek Ethel Plus test strp Strip See Rx Instructions .ROUTE .MEDSUPPLY Qty: 10 RF: 0 Discharge Instructions Instructions: Heart Failure (DC) Stand Alone Forms: Nursing Discharge Form Referrals: Socorro Serrato MD [ [facility] STAFF PHYSICIAN] - (Please call Thursday- for a follow up appointment with Dr. Serrato) Jasvir Maxwell [Primary Care Provider] - 07/02/21 2:40 pm Activity:: Activity as Tolerated Equipment/Supplies:: No Equipment Needed Diet:: Diabetic and low sodium diet Discharge Orders Discharge Orders: Discharge Order (Routine); Ordered 06/21/21 Ordered By: Ron Culp DS: Summary Time Spent with Patient providing and/or coordinating discharge services: Greater than 30 minutes Status at Discharge Functional status at discharge: independent ambulation Overall status at discharge: patient is progressing back to baseline Mental Status: mental status grossly normal Speech and Movement: speech and movement normal Mood: congruent mood Affect: normal affect Exam Const General: cooperative and no acute distress Nutritional Appearance: obese Orientation: alert and oriented x3 HENMT Head: normal to inspection and atraumatic Mouth: moist mucous membranes Eyes General: appearance normal, both eyes and all related structures Sclera: sclerae normal Neck Neck: full ROM and no JVD Resp Effort & Inspection: normal respiratory effort Auscultation: rales (lower lung vyas;improved. ), rhonchi (clears with cough. ) and no wheezes Cardio Rate: regular rate Rhythm: regular rhythm Heart Sounds: S1 normal and S2 normal GI Palpation: soft and nontender Auscultation: normal bowel sounds Skin General skin exam: no rashes or lesions noted Neuro General: no focal motor deficits Cranial Nerves: facial strength normal Cognition: normal cognition Speech: speech normal Extrem General: no calf tenderness and edema Laterality: bilateral (Improved; skin not taut.) Psych Appearance: grossly normal Mental Status: mental status grossly normal Speech and Movement: speech and movement normal Mood: congruent mood Affect: normal affect DS: Data Vitals/I&O Vitals and I&O: Vital Signs Temperature 36.5 C 06/21/21 07:23 Temperature Source Temporal Artery Scan 06/21/21 07:23 Pulse 78 06/21/21 07:23 Pulse Rhythm Irregular 06/21/21 09:50 Respiratory Rate 18 06/21/21 07:23 Respiratory Effort Non-Labored 06/21/21 09:50 Respiratory Depth Normal 06/21/21 09:50 Respiratory Pattern Normal 06/21/21 09:50 Blood Pressure 95/65 L 06/21/21 07:23 Pulse Oximetry 95 06/21/21 07:23 Oxygen Delivery Method Room Air 06/21/21 07:23 Oxygen Flow Rate 0 06/21/21 07:23 Pain Level 0 06/21/21 07:23 Comment 06/21/21 03:05 Intake & Output 06/20/21 06/20/21 06/21/21 11:59 23:59 11:59 Intake Total 180 / 540 360 / 540 Output Total 1200 / 2700 1500 / 2700 300 / 300 Balance -1020 / -2160 -1140 / -2160 -300 / -300 Weight 72.393 kg 72.6 kg Intake: Oral 180 / 540 360 / 540 Output: Urine 1200 / 2700 1500 / 2700 300 / 300 Other: Urine Color Yellow Yellow Yellow Straw Urine Appearance Clear Clear Clear Urine Odor Normal Normal Voiding Methods Toilet Bedside Commode Bedside Commode Data Completed and Pending Labs on day of discharge: Labs from last 24 hours 06/21/21 06:10 Sodium 142 Potassium 4.0 Chloride 104 Carbon Dioxide 30.2 Anion Gap 7.8 BUN 37 H D Creatinine 1.7 H Estimated GFR/1.73 m2 28.92 Glucose 108 H Calcium 8.9 PFSH Active Problem List Heart failure with preserved ejection fraction (Acute) Pulmonary hypertension (Acute) Asthma-COPD overlap syndrome (Acute) Thyroid nodule (Acute) Type 2 diabetes mellitus (Acute) Hyperlipidemia (Acute) Coronary arteriosclerosis (Acute) Cerebral arterial aneurysm (Acute) Abdominal aortic aneurysm (Acute) COPD (chronic obstructive pulmonary disease) (Chronic) GERD (gastroesophageal reflux disease) (Chronic) HLP (hyperkeratosis lenticularis perstans) (Acute) Arthritis (Acute) Fibromyalgia (Acute) Osteoporosis (Chronic) Dysphagia (Acute) Renal insufficiency (Chronic) Respiratory failure with hypoxia (Acute) Former smoker (Chronic) Pleural effusion (Acute) Recurrent respiratory infection (Acute) COPD, frequent exacerbations (Acute) Malaise and fatigue (Acute) Persistent insomnia (Acute) Medical History Aortic valve stenosis, nonrheumatic Chronic pancreatitis Fracture of humerus right Surgical History H/O abdominal aortic aneurysm repair H/O cardiac catheterization History of colectomy S/P appendectomy S/P TAVR (transcatheter aortic valve replacement) Stented coronary artery 2 cardiac stents. Family History Brother , at age 60 COPD (chronic obstructive pulmonary disease) Cancer family history of lung cancer. Hyperlipidemia Father COPD (chronic obstructive pulmonary disease) at age 59 Hyperlipidemia Heart disease Diabetes Myocardial infarction Sister Cancer family history of ovarian cancer. Mother Hyperlipidemia Alzheimer disease Social History Smoking/Tobacco Use Status: Former Tobacco Use tobacco type: cigarettes Quit Date: 02/25/20 Pack-years: 195 Tobacco: How many years used: 65 Second Hand Exposure: No Smoking risk assessment performed?: Yes Alcohol Intake: current Alcohol Intake frequency: a few times a week Alcohol type: hard liquor Drug use: Never Substance use type: does not use Current gender identity: female Do you feel safe at home: Yes Do you feel safe in your relationship?: Yes
[2021-06-21 10:20] VITALS: PULSE 89
== END 2021-06-21 11:36 | disposition home or self-care (01) | DRG 292 ==
PROVIDERS: Internal Medicine; Admitting Provider Family Medicine; PCP Family Medicine; Visit Provider Family Medicine
DX: I50.33 Acute on chronic diastolic (congestive) heart failure (principal); J96.11 Chronic respiratory failure with hypoxia; I27.20 Pulmonary hypertension, unspecified; J44.9 Chronic obstructive pulmonary disease, unspecified; Z95.2 Presence of prosthetic heart valve; M79.7 Fibromyalgia; I71.4 Abdominal aortic aneurysm, without rupture; I67.1 Cerebral aneurysm, nonruptured; E78.5 Hyperlipidemia, unspecified; I25.10 Atherosclerotic heart disease of native coronary artery without angina pectoris; K21.9 Gastro-esophageal reflux disease without esophagitis; M81.0 Age-related osteoporosis without current pathological fracture; N18.9 Chronic kidney disease, unspecified; E11.22 Type 2 diabetes mellitus with diabetic chronic kidney disease; Z20.822 Contact with and (suspected) exposure to COVID-19; I34.0 Nonrheumatic mitral (valve) insufficiency; Z79.4 Long term (current) use of insulin; Z87.891 Personal history of nicotine dependence; Z95.5 Presence of coronary angioplasty implant and graft
CPT/HCPCS: 36415; 80048; 80053; 80061; 87637; J1650; 71046; 83735; 83880; 84443; 84484; 85025; 99223; 99233; 99239; J1940; J7512; J7613; J7620